=== PATIENT | female | born 1965 ===

== ENCOUNTER 2021-09-30 09:51 | Outpatient (REF) | payer SELFPAY ==
--- NOTE | 2021-09-30 15:15 | PAPFT_PTH ---
PATIENT: Nimo Herrmann LOC: [facility] U#:[id number] AGE/SX: 56/F ROOM: RE09/30/[address]: Jacinta Edwards : 1965 BED: DIS: 09/30/2021 SPEC #: [id number] RECD: 10/05/21 10:37 STATUS: WILLI REQ #: [id number] [place]: 09/30/21 15:[address]: Jacinta Edwards DEPT: [facility] Cytology RECD BY: Paula Stark Tissues: 1 - CX/ENDOCX FOR PAP SMEARS Procedures: PAP THIN PREP/[facility] Screening HPV DNA PROBE Comments: [id number]
== END 2021-09-30 09:52 | disposition home or self-care (01) ==
LOC: LBN 09:51
PROVIDERS: Visit Provider Naturopath
DX: Z12.72 Encounter for screening for malignant neoplasm of vagina (principal); Z90.710 Acquired absence of both cervix and uterus; Z11.51 Encounter for screening for human papillomavirus (HPV)
CPT/HCPCS: 88142; 87624